=== PATIENT | male | born 1960 | race Caucasian/White ===

== ENCOUNTER → 2019-11-10 14:06 | Outpatient (CLI) | payer OTHER, SELFPAY ==
--- NOTE | 2019-11-10 | DI.RAD.S_ITS ---
PROCEDURE: XR CHEST 2V INDICATIONS: right chest wall pain TECHNIQUE: 2 views of the chest were acquired. COMPARISON: [facility], , CHEST 2 VIEW, 08/05/2013, 16:06. FINDINGS: Surgical changes and devices: None. Lungs and pleura: Lungs are clear. No pleural effusions or pneumothorax. Mediastinum: Mediastinal contours are normal. Heart size is normal. Bones and chest wall: No suspicious bony abnormalities. Soft tissues appear unremarkable. IMPRESSION: No acute disease. Dictated by: Dustin Stover M.D. on 11/10/2019 at 16:08 Approved by: Dustin Stover M.D. on 11/10/2019 at 16:10
== END ==
PROVIDERS: Family Provider Family Medicine; PCP Family Medicine; Visit Provider Family Medicine
DX: R07.89 Other chest pain (principal)
CPT/HCPCS: 71046

== ENCOUNTER → 2020-04-14 12:53 | Outpatient (CLI) | payer OTHER, SELFPAY | PROVIDERS: Family Provider Family Medicine; PCP Family Medicine; Referring Provider Family Medicine; Visit Provider Family Medicine | DX: R20.2 Paresthesia of skin (principal) | CPT/HCPCS: 95886; 95910 ==

== ENCOUNTER → 2020-06-29 12:58 | Outpatient (CLI) | payer OTHER, SELFPAY ==
[2020-06-30 15:46] LABS: COVID19 Sendout Not Detected (Not Detect)
== END ==
PROVIDERS: Family Provider Family Medicine; PCP Family Medicine; Visit Provider Physician Assistant
DX: Z11.59 Encounter for screening for other viral diseases (principal)
CPT/HCPCS: 87635

== ENCOUNTER → 2020-09-20 08:22 | Outpatient (CLI) | payer OTHER, SELFPAY ==
[2020-09-20 10:39] LABS: COVID19 -Nasal RAPID Negative (Negative)
== END ==
PROVIDERS: Family Provider Family Medicine; PCP Family Medicine; Visit Provider Family Medicine Sleep Medicine
DX: Z01.812 Encounter for preprocedural laboratory examination (principal); Z20.828 Contact with and (suspected) exposure to other viral communicable diseases
CPT/HCPCS: 87635; C9803

== ENCOUNTER → 2022-12-13 12:13 | Outpatient (CLI) | payer OTHER, SELFPAY ==
[2022-12-13 12:48] LABS: Add Manual Diff / Slide Review NO; Basophils Absolute Auto 0 /uL (0-100); Basophils Percent Auto 0.7 % (0-2); Eosinophils Absolute Auto 200 /uL (0-450); Eosinophils Percent Auto 4.1 % (2-4); Hematocrit 46.3 % (41-53); Hemoglobin 15.9 g/dL (13.5-17.5); Lymphocytes Absolute Auto 1300 /uL (1100-4500); Lymphocytes Percent Auto 22.9 % (25-40); Mean Corpuscular HGB Conc 34.3 % (30-36); Mean Corpuscular Hemoglobin 31.8 PG (26-34); Mean Corpuscular Volume 92.7 fL (80-100); Monocytes Absolute Auto 600 /uL (0-900); Monocytes Percent Auto 11.1 % (3-14); Neutrophils Absolute Auto 3500 /uL (1500-7000); Neutrophils Percent Auto 61.2 % (50-75); Platelet Count 273 X10^3/uL (150-400); Red Cell Distribution Width 13.3 % (11.6-14.8); White Blood Cell Count 5.7 X10^3/uL (4.5-11.0)
[2022-12-13 13:08] LABS: Alanine Aminotransferase 37 IU/L (<50); Albumin 4.3 g/dL (3.5-5.0); Albumin Globulin Ratio 1.1 (1.0-2.8); Alkaline Phosphatase 72 U/L (38-126); Aspartate Aminotransferase 31 IU/L (17-59); Bilirubin Total 1.2 mg/dL (0.2-1.3); Blood Urea Nitrogen 20 mg/dL (9-20); C-Reactive Protein Quant < 0.5 mg/dL (<1.0); Calcium 9.1 mg/dL (8.4-10.2); Carbon Dioxide 26 mmol/L (22-32); Chloride 105 mmol/L (98-107); Cholesterol 209 mg/dL (140-199); Estimated Glomerular Filt Rate > 60 mL/min (>60); Globulin 3.8 g/dL (1.7-4.1); Glucose 77 mg/dL (80-110); HDL Cholesterol 48 mg/dL (40-60); HEMOLYSIS < 15 (0-50); LDL Cholesterol Calculated 144 mg/dL (<100); Potassium 4.1 mmol/L (3.4-5.1); Sodium 138 mmol/L (137-145); Total Protein 8.1 g/dL (6.3-8.2); Triglycerides 87 mg/dL (35-150)
[2022-12-13 13:32] LABS: Erythrocyte Sedimentation Rate 2 MM/HR (0-15)
[2022-12-20 10:10] LABS: Treponema pallidum Antibodies NON REACTIVE
== END ==
PROVIDERS: Family Provider Family Medicine; PCP Family Medicine; Referring Provider Family Medicine; Visit Provider Family Medicine
DX: R21 Rash and other nonspecific skin eruption (principal)
CPT/HCPCS: 36415; 80053; 80061; 84443; 85025; 85651; 86140; 86780

== ENCOUNTER → 2025-06-21 13:18 | Outpatient (CLI) | payer OTHER, SELFPAY ==
--- NOTE | 2025-06-21 13:31 | EKG_ITS ---
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
[2025-06-21 14:23] LABS: Hemoglobin A1C% w Est Avg Glu 5.5 % (4.0-6.0)
[2025-06-21 14:27] LABS: Albumin 4.5 g/dL (3.5-5.0)
[2025-06-21 14:39] LABS: Prealbumin 28.2 mg/dL (17.6-36.0)
[2025-06-21 14:49] LABS: Vitamin D 25 Hydroxy (D3) 42.5 ng/mL (30.0-100.0)
== END ==
PROVIDERS: Family Provider Family Medicine; PCP Family Medicine; Referring Provider Family Medicine; Visit Provider Orthopaedic Surgery Adult Reconstructive Orthopaedic Surgery
DX: Z01.818 Encounter for other preprocedural examination (principal); M17.0 Bilateral primary osteoarthritis of knee
CPT/HCPCS: 36415; 82040; 82306; 83036; 84134; 93005

== ENCOUNTER 2025-10-04 06:05 | Day surgery (SDC) | payer OTHER, SELFPAY ==
[2025-09-29 09:23] VITALS: BMI 32.3
[2025-10-04] VITALS (10 sets, daily range): BP systolic 123–140; BP diastolic 71–85; PULSE 70–81; RESP 12–16; TEMP 36.1–36.8; O2SAT 73–98
[2025-10-04] MEDS: ACETAMINOPHEN 325 MG TABLET 975 MG PO ×2 (07:02→12:38)
[2025-10-04] MEDS: LACTATED RINGERS 1,000 ML 42 ML IV ×2 (07:03→09:04)
--- NOTE | 2025-10-04 07:28 | DI.RAD.S_ITS ---
PROCEDURE: XR KNEE LT 1TO2V INDICATIONS: post operative imaging TECHNIQUE: 2 view(s) of the knee acquired. COMPARISON: [facility], CR, XR KNEE LT 1TO2V, 09/07/2025, 11:55. FINDINGS: Bones: Patient is status post knee joint arthroplasty. Hardware components are in expected positions. Visualized bony structures are intact. Soft tissues: Overlying postoperative changes are noted. IMPRESSION: Expected post-operative appearance of a knee arthroplasty. Approved by: hSanice Farias M.D.,Ph.D. on 10/04/2025 at 11:23
--- NOTE | 2025-10-04 07:30 | PM.PREOP ---
Pre-operative Note Interval Note History & Physical reviewed/Exam performed by Physician: Yes Changes to H&P: No
--- NOTE | 2025-10-04 08:18 | SUR.OPER ---
Supine on padded OR bed. Pillow under head, arms secured on padded armboards <90 degree abduction. Safety belt across torso. Non-operative leg secured with tape over blanket over lower leg. Operative leg secured in DeMayo/Deacon/Nathe positioner. Foam padded brace at thigh of operative leg.
[2025-10-04] MEDS: KETOROLAC 30 MG/ML VIAL 15 MG INJ (08:27)
--- NOTE | 2025-10-04 08:49 | SUR.OPER ---
IRRIGATION: NACL, HYDROGEN PEROXIDE, POVIDONE IODINE
--- NOTE | 2025-10-04 09:48 | P.OP_ITS ---
Operative Date/Time/Diagnoses Date of procedure: 10/04/25 Time of procedure: 07:45 Pre-op diagnosis: Left knee arthritis Post-op diagnosis: same Procedure & Clinicians Procedure: Left total knee arthroplasty with removal of ale from prior ACL reconstruction Same procedure(s) as scheduled: Yes Surgeon: Bharath De La Rosa Assisted?: Yes Hand Spring Former: Valerie Kong Anesthesia Type: Spinal, Sedation, Peripheral nerve block and Local Operative Notes Findings: Severe arthritis Applied: implant(s) Estimated Blood Loss (mL): 50 Tourniquet time (min): 65 Procedure in detail: Left Gap-Balanced Yuko Persona Medial-Congruent Primary Total Knee Arthroplasty Implants: * Size 10 Cruciate Retaining Femoral Component * Size F Tibial Component * Size 10 Medial Congruent Polyethylene Insert * Unresurfaced Patella Procedure Summary: This 65-year-old male patient had a history of a ACL reconstruction on this left knee and valgus arthritis. His contralateral side also has valgus alignment indicating that as his ouzinkie alignment. I discussed with him my recommendation that we aim to leave him with a more mechanically aligned leg and this was reflected in my distal femoral cut which was set at 5? as well as my tibial cut which was in approximately 1 degree of varus. With the these resections I initially took a minimal +2 cut on the tibia so that I could correct my extension gap balance with a varus or valgus recut as necessary following gap assessment but found that the +2 resection had good balanced between the medial and lateral compartments so I recut with the same cut block in order to maintain that extension gap symmetry. The femur externally rotated to 2? with the tensioner and appropriate flexion gap symmetry was confirmed with the tensioner after placement of the 4 in 1 block. I did not encounter his femoral screw during instrumentation of the femur and could not palpate it on the femoral condyle. The top tibial staple was loose and was removed early in the case and I hit the bottom tibial staple with the drill for the keel for the tibial component. I removed the staple using an osteotome. I bone grafted the tibial tunnel. The central portion of the keel did extend down into the bone graft but the fins were entirely out of the area where the old tibial tunnel had sat. Procedure in Detail: This patient was seen preoperatively and evaluated for knee pain which was refractory to numerous nonoperative treatment modalities. Their pain correlated with radiographic changes demonstrating significant degeneration in the knee joint. The risks and benefits of continued nonoperative management versus operative management were discussed at length and all of the patient?s questions were answered. Additional educational materials providing further details beyond our discussion in clinic were provided via a publicly available patient education video which included the incidence of medical complications associated with total knee arthroplasty, reasons for revision following total knee arthroplasty, and patient satisfaction rates following total knee arthroplasty. With this understanding of the risks inherent to the procedure, the patient elected to move forward with operative management. Following preoperative optimization, the patient was scheduled for surgery. The patient was met in the preoperative holding area the day of the procedure and all questions were answered. The patient?s nares were swabbed in order to decolonize them from MRSA. Informed consent was signed and the left limb was marked with indelible ink.? The patient was brought back to the operating room where anesthesia was induced. The patient was transferred to the operating table and all bony prominences were padded. The operative site was prepped and draped in the usual sterile fashion. A second prep stick was utilized following drape placement. The incision was marked corresponding to the medial aspect of the tibial tubercle and the patella. Ioban was wrapped circumferentially around the knee. Prior to incision, tranexamic acid and cefazolin were administered. Templating images were displayed. A timeout procedure was performed verifying the patient?s identity, medical comorbidities, allergies, relevant medications, anesthesia type and the surgical plan. All present were in agreement. The assistance of a physician public services assistant was required for positioning, room setup, soft tissue retraction and wound closure. Without this assistance, the procedure would have been significantly more challenging and time consuming.?? The tourniquet was inflated prior to incision. I made an anterior incision over the knee, dissected through the subcutaneous tissues and identified the lateral border of the VMO. Medial and lateral soft tissue flaps were developed. A mid- vastus arthrotomy was performed ensuring that adequate capsular tissue would remain for closure at the conclusion of the procedure. The knee was brought into extension and the medial soft tissues were released off the joint line of the tibia. Tissue overlying the distal anterior femur was released to allow for later assessment for anterior notching but left in place. A portion of the retropatellar fat pad was excised while protecting the patellar tendon. The patella was everted. The patella was not resurfaced. Osteophytes were excised and a lateral facetectomy was performed. The patella was released from its everted position.?? I flexed the knee to 90 degrees and placed retractors to allow access to the notch. An opening reamer was used to gain access to the femoral canal and an intramedullary esteban was introduced into the canal. Diaphyseal fit was obtained in order to plan a distal femoral resection at 5 degrees relative to the anatomic axis. A +0 resection was planned and assessed using an geoffrey wing. I then made the cut using a sagittal saw. This provided additional access to the femoral notch. The ACL and PCL were excised. Retractors were placed on the lateral and medial tibia. I hyperflexed the knee while externally rotating it to sublux the tibia anteriorly. I placed a Di retractor posteriorly and used this to provide additional anterior subluxation. The remainder of the PCL root was released. An extramedullary guide was positioned for a resection in very slight varus. A +2 resection off the medial tibia after removing the remaining cartilage in that compartment was planned and the tibial cutting jig was pinned in place. I evaluated the depth, varus-valgus alignment and slope of the planned tibial resection prior to making the cut. I cut the tibia with a sagittal saw while using retractors to protect the MCL, patellar tendon, and posterolateral structures.? The knee was repositioned in extension and the Fuzion soft tissue balancing gauge was introduced. This demonstrated that there was equal tension in the medial and lateral compartments of the knee with the knee in full extension and no additional soft tissue releases were necessary. I did have to recut the tibia to bring it out to a +4 cut in order to gain full extension of the knee. When 60 pounds of force was applied to the Fuzion device, the extension gap opened to 10 mm. I moved the knee into 90 degrees of flexion, and the Fuzion device was recalibrated by removing a 9 mm tonja to allow assessment of the flexion gap. The Fuzion block was placed perpendicular to the resected surface of the tibia and the resected surface of the distal femur. Sixty pounds of traction was applied to match the tension of the extension gap. This externally rotated the femur to 2 degrees. Pins were placed in the 10 mm holes. Appropriate sizing was determined and a 4-in-1 block was placed. This was double checked using the Fuzion device to ensure that it would open to an equal distance as the extension gap when the same amount of force was applied. The Fuzion block was also used to assess flexion gap symmetry. An geoffrey wing was used to ensure there would be no anterior notching. Retractors were placed to protect the soft tiss ues during resection. Captured cuts were performed with a sagittal saw for the anterior and posterior femur as well as the corresponding chamfers.?A laminar carbon setter and retractors were used to expose the posterior knee and the menisci and posterior osteophytes were removed. Trial components were placed and the construct was assessed. Range of motion was assessed by ensuring the knee could achieve full extension and assessing maximum passive knee flexion by elevating the femur and allowing the heel to passively fall towards the buttock. Gap symmetry was assessed by stressing the medial and lateral compartments in both extension and flexion. Laxity was assessed in both extension and flexion and the polyethylene trial was adjusted with shims as necessary. Patellar tracking was assessed with knee flexion. Once satisfied with the construct, I moved forward with implant insertion. Lug holes were drilled in the femur and the tibia was prepped ensuring appropriate sizing and rotation relative to the tibial tubercle.?? The bony ends were irrigated. A portion of the anterior chamfer cut was utilized as a to plug the hole from the intramedullary esteban in the femur. I impacted the tibial component into place. The tibia was reduced underneath the femur. I placed the femoral component. I brought the knee into extension and manually pressurized the construct by pushing on the heel. The knee was bathed in a dilute mixture of betadine and peroxide. A mixture of Ropivacaine, Epinephrine and Toradol was infiltrated throughout the soft tissues into structures including the VMO, patellar tendon, quadriceps tendon, MCL and femoral periosteum. The knee was copiously irrigated with pulse lavage. The knee was again trialed. Range of motion was assessed by ensuring the knee could achieve full extension and assessing maximum passive knee flexion by elevating the femur and allowing the heel to passively fall towards the buttock. Gap symmetry was assessed by stressing the medial and lateral compartments in both extension and flexion. Laxity was assessed in both extension and flexion and the polyethylene trial was adjusted with shims as necessary. Patellar tracking was assessed with knee flexion. The tourniquet was let down and the polyethylene trial was removed. I inspected the knee inspected for any residual bleeding. Once hemostasis was achieved I inserted the final polyethylene and ensured appropriate engagement of the dovetail locking mechanism.?? The arthrotomy was closed with non-absorbable interrupted suture ensuring that this extended to the top of the arthrotomy. This was backed up with running barbed suture throughout the arthrotomy. The skin was closed with 2-0 and 3-0 sutures. Surgical glue was applied and a soft dressing was placed.?The sponge, instrument and needle counts were reported as being correct at the end of the case. The patient was transferred from the operating table back to a stretcher. The patient emerged from anesthesia without difficulty and was taken to the PACU in a stable condition.? Plan for aftercare: * Weightbearing as tolerated * Aspirin 81 twice per day for DVT prophylaxis * Multimodal pain regimen with no IV opioids ordered * Anticipate discharge home later today * Follow up at [facility] in 2 weeks for wound check Complications: none Post-operative Condition: stable Disposition: same day surgery
[2025-10-04] MEDS: ONDANSETRON 4 MG/2 ML INJ IV (10:33)
[2025-10-04] MEDS: METOCLOPRAMIDE 10 MG/2 ML INJ IV (11:00)
--- NOTE | 2025-10-04 12:09 | PT.IIE ---
Current Diagnoses Unilateral primary osteoarthritis, left knee (10/04/25) Surgery Performed Operation Date: 10/04/25 07:45 Actual Procedures p Total Knee Arthroplasty(Left) - Bharath De La Rosa MD Surgical History (Last Updated 09/29/25 @ 10:25 by Jodi Boles, RN) H/O wrist surgery (06/2020) Hx of nasal septoplasty (08/2023) S/P ACL reconstruction Medical History (Last Updated 09/29/25 @ 10:26 by Jodi Boles, RN) BPH (benign prostatic hyperplasia) Excessive daytime sleepiness GERD (gastroesophageal reflux disease) History of opioid abuse HLD (hyperlipidemia) Hypothyroidism Insomnia Kidney stone (05/2025) Obesity (BMI 30-39.9) BEBO on CPAP Primary osteoarthritis of both knees Snoring Physical Therapy Inpatient Evaluation/Re-Eval M1 PT IP Prior Functional Status Start: 10/04/25 14:43 Freq: Status: Active Protocol: Document 10/04/25 14:43 NW (Rec: 10/04/25 14:52 NW [id number]) Medical Review Prior Functional Status Mobility and Gait I Activities of Daily I Living and IADL's Social History Household Members spouse Living Arrangements House Number of Floors ( Two Floors Floors) Home Environment Standard Height Toilet,Walk in Shower Home Equipment Raised Toilet Seat Without Armrests Employment Status Electronic Publishing Specialist Employed Additional Social spouse able to be home at all times to assist History Comment M2 PT-IP Current Condition Start: 10/04/25 14:43 Freq: Status: Active Protocol: Document 10/04/25 14:43 NW (Rec: 10/04/25 14:52 NW [id number]) Physical Therapy Current Condition Current Condition Evaluation Date 10/04/25 Treatment Diagnosis L TKA Onset Date 10/04/25 M3 PT-IP Subjective Start: 10/04/25 14:43 Freq: Status: Active Protocol: Document 10/04/25 14:43 NW (Rec: 10/04/25 14:52 NW [id number]) Subjective Physical Therapy Visit Type Type Initial Evaluation Visit Start Time 11:40 Visit Stop Time 12:09 Number of REAL ESTATE LISTING CONSULTANT Visits 0 Physical Therapy Visit Comments Patient Comments Pt is received supine in post op bed visiting with spouse. Pain well controlled. Patient Goals go home M4 PT-IP Mobility and Gait Start: 10/04/25 14:43 Freq: Status: Active Protocol: Document 10/04/25 14:43 NW (Rec: 10/04/25 14:52 NW [id number]) PT-Bed Mobility Assessment Supine to Sit Supine to Sit Independent Sit to Supine Sit to Supine Independent Scooting Scooting to Edge of Contact Guard Assistance Bed PT-Transfer Assessment Sit to and From Stand Sit to and from Contact Guard Assistance,1 Person Assistance,Use of Stand Upper Extremities Equipment Transfer Assistive Gait Belt,Front Wheeled Walker Device Transfers Transfer Destination Bed,Wheelchair Transfer Technique Stand Step Pivot Transfer Ability Level of Assist Contact Guard Assistance Comments Mobility Comments Decreased WBing on LLE, cues for UE placement with AD management as pt places bilateral on FWW and pulls with essentially SL stand. Able to maintain SL balance on RLE. Gait Assessment Gait Gait Assistance Contact Guard Assist Required: Distance (Feet) 50 Assistive Devices Assistive Device Gait Belt,Front Wheeled Walker Gait Deviations General Gait Pattern Antalgic,Decreased Stride Length,Step-to Gait Comments Gait Comments Adequate velocity and power production with occasional cues necessary for AD management to leave it on the ground. Stair Climbing Assessment Evaluation Level of Assist On Contact Guard Assistance Stairs Devices Stair Climbing Right Railing Assistive Devices Technique/Endurance Stair Climbing Ascend and Descend Direction Stair Climbing Step to Step Technique Number of Steps 3 Climbed Query Text: Stair Climbing Set # 3 Repetitions (reps) Comments Stair Climbing Able to maintain good eccentric control and safety Comments awareness with unilateral handrail. PT-Balance Assessment Sitting Balance and Reactions Static Sitting Normal Balance Ability Dynamic Sitting Good Balance Ability Standing Balance and Reactions Static Standing Good Balance Ability Dynamic Standing Fair Balance Ability Device Used FWW Comments Other Balance Tests/ Able to perform dressing tasks with Melvin with no UE Deviations/Treatment support. : M5 PT-IP Objective Assessments Start: 10/04/25 14:43 Freq: Status: Active Protocol: Document 10/04/25 14:43 NW (Rec: 10/04/25 14:52 NW [id number]) Orientation Orientation/Cognition Level of Alertness Alert Orientation Name,Age,Birthday,Month,Date,Year,Day of Week,Place, Situation Safety Awareness Understands Safety Issues Gross Range of Motion Upper Extremity ROM Assessment Within Functional Limits Lower Extremity ROM Assessment Left Impaired Impairments secondary to post operative Strength Upper Extremity Strength Assessment Within Functional Limits Lower Extremity Strength Assessment Left Impaired Knee extension 3/5, no further testing due to post op Coordination Assessment Gross Coordination Gross Coordination WNL Sensation Assessment Sensation Gross Sensation WNL M6 PT-IP Treatment Start: 10/04/25 14:43 Freq: Status: Active Protocol: Document 10/04/25 14:43 NW (Rec: 10/04/25 14:52 NW [id number]) Physical Therapy Treatment Exercises Exercises Ankle Pumps,Gluteal Sets,Quad Sets,Heel Slides Education Education Provided Weight Bearing Status,Post-Op Packet,Safety Other Treatments Other Treatment Education on stair navigation and strategies to Performed decrease WBing through LLE. M7 PT-IP Assessment and Plan Start: 10/04/25 14:43 Freq: Status: Active Protocol: Document 10/04/25 14:43 NW (Rec: 10/04/25 14:52 NW [id number]) PT Summary Assessment and Plan Potential Rehabilitation Excellent Potential Status of Condition Stable at Evaluation Summary Impairments Pain,ROM,Strength,Balance,Transfers,Gait,Activity Tolerance Progress Towards Safe For Discharge Goals Assessment Summary Darwin is a 65 yr old male status post L TKA on 10/04/25. Pt at baseline is fairly active and independent with all ADLs and mobility as pt still practices being an ER MD. Pt lives in a two story home with 14 steps to second floor which has main bathroom. Today pt is pleasant and joined by spouse for post op mobility instructions. Pt is independent with bed mobility, CGA for transfers, gait, and stair navigation with adequate safety awareness. Education given on AD management and post operative exercises with importance of ROM prior to receiving OP PT upon discharge. Frequency of Treatment Frequency Of Discharge Treatment Weight Bearing Status Weight Bearing Weight Bear as Tolerated Status Recommendations To Nursing Amount of Assist 1 Person Assist Needed Discharge Recommendations PT Discharge Home with Assistance,Outpatient PT Recommendations Transportation Needs Private Vehicle at Discharge - PT assist 1
[2025-10-04] MEDS: MELOXICAM 7.5 MG TABLET 15 MG PO (12:37)
== END 2025-10-04 12:40 | disposition home or self-care (01) ==
PROVIDERS: Family Provider Family Medicine; PCP Family Medicine; Referring Provider Orthopaedic Surgery Adult Reconstructive Orthopaedic Surgery; Visit Provider Orthopaedic Surgery Adult Reconstructive Orthopaedic Surgery
PROC: 0SRD0JZ Replacement of Left Knee Joint with Synthetic Substitute, Open Approach (ICD-10-PCS; CPT 27447; principal; 2025-10-04 07:45)
DX: M17.12 Unilateral primary osteoarthritis, left knee (principal); M21.062 Valgus deformity, not elsewhere classified, left knee; M25.762 Osteophyte, left knee
CPT/HCPCS: 27447; 73560; 97161; 97530; C1776; C1713; J0689; J1100; J1885; J2405; J2704; J2765; J7120